=== PATIENT | female | born 1940 | race Caucasian/White ===

== ENCOUNTER 2022-05-12 15:29 | Emergency (ER) | payer MEDICARE ==
[2022-05-12] MEDS ORDERED: cloNIDine 0.1 MG Tab PO ONE ×2 (17:06→19:31)
[2022-05-12] MEDS ORDERED: Sodium Chloride 0.9% 10 ML Syringe FLUSH PRN (18:09)
[2022-05-12] MEDS ORDERED: Sodium Chloride 0.9% 1,000 ML IV SCH (18:15)
[2022-05-12] MEDS ORDERED: Sodium Chloride 0.9% 100 ML IV SCH (18:30)
[2022-05-12] MEDS ORDERED: Iopamidol 755 Mg/ML 100 ML Bottle IV SCH (18:30)
== END 2022-05-12 19:56 | disposition home or self-care (01) ==
LOC: JP.ED 15:29
DX: R06.02 Shortness of breath (principal); R06.01 Orthopnea; E78.00 Pure hypercholesterolemia, unspecified; I10 Essential (primary) hypertension; Z79.82 Long term (current) use of aspirin; Z87.891 Personal history of nicotine dependence
CPT/HCPCS: 36415; 71046; 71275; 83880; 85379; 99285; A9270; J3490; Q9967

== ENCOUNTER 2023-10-15 09:59 | Inpatient (IN) | payer MEDICARE ==
[2023-10-15] MEDS: Nozin Nasal Sanitizer NASBOTH SCH ×2 (10:52→20:24)
[2023-10-15] MEDS: Lactated Ringers 1,000 ML IV SCH (10:52)
[2023-10-15] MEDS ORDERED: Midazolam 1 MG/ML 2 ML SDV ONE (11:31)
[2023-10-15] MEDS ORDERED: fentaNYL 100 MCG/2 ML SDV ONE (11:31)
[2023-10-15] MEDS ORDERED: Propofol 200 MG/20 ML SDV ONE ×2 (11:31→15:06)
[2023-10-15] MEDS ORDERED: Morphine 2 MG/ML SYRINGE IVPUSH PRN (13:58)
[2023-10-15] MEDS ORDERED: Magnesium Hydroxide 400 MG/5 ML Susp 30 ML Cup PO PRN (13:58)
[2023-10-15] MEDS ORDERED: oxyCODONE 5 MG Tab PO PRN (13:58)
[2023-10-15] MEDS ORDERED: Docusate Sodium 100 MG Cap PO PRN (13:58)
[2023-10-15] MEDS ORDERED: Nitroglycerin 0.4 MG Tab.SL SL PRN (14:00)
[2023-10-15] MEDS ORDERED: Diazepam 2 MG Tab PO PRN (14:00)
[2023-10-15] MEDS ORDERED: Albuterol 6.7 GM Inhaler INH PRN (14:10)
[2023-10-15] MEDS: ceFAZolin 2 GM in Premix Bag 1 BAG IV ONE (14:33)
[2023-10-15] MEDS: Bupivacaine 0.5% 50 ML MDV ONE (14:52)
[2023-10-15] MEDS: Ketorolac 15 MG/ML SDV IVPUSH PRN (17:25)
[2023-10-15] MEDS: Ondansetron 4 MG/2 ML SDV IVPUSH PRN (17:26)
[2023-10-15] MEDS: Acetaminophen 325 MG Tab PO SCH (17:56)
[2023-10-15] MEDS: Famotidine 20 MG Tab PO SCH (20:21)
[2023-10-15] MEDS: oxyCODONE 5 MG Tab PO PRN (20:21)
[2023-10-15] MEDS: amLODIPine 5 MG Tab PO SCH (20:22)
[2023-10-15] MEDS: Lisinopril 20 MG Tab PO SCH (20:22)
[2023-10-15] MEDS: atorvaSTATin 20 MG Tab PO SCH (20:22)
[2023-10-15] MEDS: Triamcinolone Acetonide 0.1% Crm 15 GM Tube TOP SCH (20:42)
[2023-10-15] MEDS: Mupirocin Oint 22 GM Tube TOP SCH (20:42)
[2023-10-15] MEDS: ceFAZolin 2 GM in Premix Bag 1 BAG IV SCH (22:29)
[2023-10-15] MEDS: Sodium Chloride 0.9% 1,000 ML IV SCH (22:30)
[2023-10-16] MEDS: Fluticasone NASAL Spray 16 GM Bottle NAS SCH (08:30)
[2023-10-16] MEDS: Lactobacillus Rhamnosus GG (Probiotic) Cap PO SCH (08:31)
[2023-10-16] MEDS: Aspirin 325 MG Tab.EC PO SCH (08:31)
[2023-10-16] MEDS ORDERED: traMADol 50 MG Tab PO PRN (12:28)
== END 2023-10-17 13:17 | disposition home or self-care (01) | DRG 470 ==
LOC: JP.SDS 09:59 → JP.MS 13:58 → JP.SDS 10-16 12:26 → JP.MS 10-16 12:26
PROVIDERS: ADMIT Specialist; ATTEND Specialist
PROC: 0SRD069 Replacement of Left Knee Joint with Oxidized Zirconium on Polyethylene Synthetic Substitute, Cemented, Open Approach (ICD-10-PCS; principal; 2023-10-16)
DX: M17.12 Unilateral primary osteoarthritis, left knee (principal); M87.9 Osteonecrosis, unspecified; I25.10 Atherosclerotic heart disease of native coronary artery without angina pectoris; I10 Essential (primary) hypertension; K21.9 Gastro-esophageal reflux disease without esophagitis; E78.5 Hyperlipidemia, unspecified; Z79.82 Long term (current) use of aspirin; Z79.899 Other long term (current) drug therapy; Z88.2 Allergy status to sulfonamides
CPT/HCPCS: 73560-26-LT; 73560-LT; 97110-GP; 97116-GP; 97161-GP; 97530-GP; A9270-GY; C1713; C1776; J0665; J0690; J1885; J2250; J2405; J2704; J3010; J7030; J7120

== ENCOUNTER 2024-12-03 17:41 | Emergency (ER) | payer MEDICARE ==
[2024-12-03] MEDS ORDERED: Aspirin 325 MG Tab.EC PO ONE (17:45)
[2024-12-03 17:54] LABS: BASOPHILS PERCENT AUTO 0.3 % (0.1-1.3); EOSINOPHILS PERCENT AUTO 0.3 % (0.0-5.4); HEMATOCRIT 37.5 % (34.3-46.0); HEMOGLOBIN 12.6 g/dL (11.2-15.5); IMMATURE GRAN PERCENT AUTO 0.3 % (0.0-0.7); LYMPHOCYTES PERCENT AUTO 42.4 % (11.4-47.7); MEAN CORPUSCULAR HEMOGLOBIN 31.6 pg (31.6-35.5); MEAN CORPUSCULAR HGB CONC 33.6 g/dL (31.6-35.5); MONOCYTES ABSOLUTE AUTO 0.47 K/uL (0.20-0.90); MONOCYTES PERCENT AUTO 6.2 % (3.3-12.6); NEUTROPHILS ABSOLUTE AUTO 3.82 K/uL (1.0-7.6); NEUTROPHILS PERCENT AUTO 50.5 % (40.0-78.1); PLATELET COUNT,PLT 228 K/uL (130-375); RED BLOOD CELL COUNT 3.99 M/uL (3.77-5.24); WHITE BLOOD CELL COUNT,WBC 7.6 K/uL (3.2-11.0)
[2024-12-03 17:55] LABS: BASOPHILS ABSOLUTE AUTO 0.02 K/uL (0.00-0.10); EOSINOPHILS ABSOLUTE AUTO 0.02 K/uL (0.00-0.40); IMMATURE GRAN ABSOLUTE AUTO 0.02 K/uL (0.00-0.23)
[2024-12-03 18:12] LABS: PROTHROMBIN TIME 10.4 sec (9.2-10.6)
[2024-12-03] MEDS: Aspirin 81 MG Tab.Chew PO ONE (18:15)
[2024-12-03 18:22] LABS: A/G RATIO 1.2 (1.2-2.2); ALANINE AMINOTRANSFERASE,ALT 20 U/L (12-78); ALBUMIN 3.6 g/dL (3.4-5.0); ALKALINE PHOSPHATASE 79 U/L (46-116); ANION GAP 11.6 mmol/L (5.0-14.0); ASPARTATE AMNIOTRANSFERASE,AST 14 U/L (15-37); BILIRUBIN TOTAL 0.7 mg/dL (0.2-1.0); BLOOD UREA NITROGEN,BUN 21 mg/dL (7-18); CALCIUM 9.3 mg/dL (8.5-10.1); CARBON DIOXIDE,CO2 24 mmol/L (21-32); CHLORIDE,CL 106 mmol/L (100-108); CREATININE 1.1 mg/dL (0.6-1.0); EST CRCL DRUG DOSING (CG) 30.47 mL/min; ESTIMATED GFR 50 mL/min (>60); GLUCOSE RANDOM 150 mg/dL (74-106); POTASSIUM,K 3.8 mmol/L (3.6-5.2); PRO B-TYPE NATRIUR PEPT,BNPPRO 88 pg/mL (5-450); PROTEIN TOTAL,TP 6.5 g/dL (6.4-8.2); SODIUM,NA 142 mmol/L (140-148); TROPONIN I HIGH SENSITIVITY 4.3 pg/mL (<=60.3)
[2024-12-03] MEDS: Sodium Chloride 0.9% 1,000 ML IV SCH (18:54)
[2024-12-03] MEDS: Famotidine 20 MG Tab PO ONE (20:07)
[2024-12-03 20:10] LABS: APPEARANCE,URINE SLIGHTLY CLOUDY (CLEAR); BILIRUBIN,URINE NEGATIVE (NEGATIVE); COLOR,URINE YELLOW (YELLOW); GLUCOSE,URINE NEGATIVE (NEGATIVE); KETONES,URINE NEGATIVE (NEGATIVE); LEUKOCYTE ESTERASE,URINE NEGATIVE (NEGATIVE); NITRITE,URINE NEGATIVE (NEGATIVE); OCCULT BLOOD,URINE TRACE-INTACT (NEGATIVE); PROTEIN,URINE TRACE mg/dL (NEGATIVE); UROBILINOGEN,URINE 0.2 EU/dL (0.2-1.0)
[2024-12-03 20:18] LABS: EPITHELIAL CELLS,URINE FEW
[2024-12-03 20:19] LABS: AMORPHOUS SEDIMENT,URINE NOT SEEN; BACTERIA,URINE FEW; MUCUS,URINE MANY; RBC,URINE 0-5 (0-5)
[2024-12-03 20:20] LABS: WBC,URINE 0-5 (0-5)
== END 2024-12-03 20:24 | disposition home or self-care (01) ==
LOC: JP.ED 17:41
DX: K21.9 Gastro-esophageal reflux disease without esophagitis (principal); I10 Essential (primary) hypertension; E78.00 Pure hypercholesterolemia, unspecified; J45.909 Unspecified asthma, uncomplicated; R06.9 Unspecified abnormalities of breathing; Z88.2 Allergy status to sulfonamides; Z79.82 Long term (current) use of aspirin; Z79.51 Long term (current) use of inhaled steroids; Z79.899 Other long term (current) drug therapy
CPT/HCPCS: 36415; 71045; 80053; 81001; 83880; 84484; 85025; 85610; 93005; 96360; 99285; A9270; J7030; 93010; 99283